=== PATIENT | female | born 1965 | race African-American/Black ===

== ENCOUNTER 2018-11-13 13:42 | Emergency (ER) | payer MEDICARE ==
[~2018-11-13] VITALS: Ht 165.1 cm; Wt 120.0 kg
[2018-11-13] MEDS ORDERED: ONDANSETRON ODT 4 MG ONE (14:23)
[2018-11-13] MEDS ORDERED: ONDANSETRON ODT 4 MG PO ONE ×2 (14:30→17:30)
[2018-11-13 14:50] LABS: BASOPHILS % (AUTO) 0 % (0-1); EOSINOPHILS # (AUTO) 0.03 x10^3/uL (0-0.4); EOSINOPHILS % (AUTO) 0 % (1-7); LYMPHOCYTES # (AUTO) 0.82 x10^3/uL (1-3.4); LYMPHOCYTES % (AUTO) 13 % (22-44); MD NO; MEAN CORPUSCULAR HEMOGLOBIN 26.5 pg (27.0-34.8); MEAN CORPUSCULAR HGB CONC 33.1 g/dL (32.4-35.8); MEAN PLATELET VOLUME 10.2 fL (7.4-10.4); MONOCYTES # (AUTO) 0.12 x10^3/uL (0.2-0.8); MONOCYTES % (AUTO) 2 % (2-9); NEUTROPHILS # (AUTO) 5.59 x10^3/uL (1.8-6.8); NEUTROPHILS % (AUTO) 85 % (42-75); PLATELET COUNT 259 x10^3/uL (130-400); RED BLOOD COUNT 5.95 x10^6/uL (3.82-5.3); RED CELL DISTRIBUTION WIDTH 16.4 % (9.6-15.2)
[2018-11-13 14:59] LABS: ALANINE AMINOTRANSFERASE 23 U/L (12-78); ALBUMIN 4.2 g/dL (3.4-5.0); ANION GAP 10 mmol/L (5-15); CALCIUM 9.1 mg/dL (8.5-10.1); CHLORIDE 109 mmol/L (98-107); CREATININE 0.84 mg/dL (0.55-1.02)
[2018-11-13 15:01] LABS: ALKALINE PHOSPHATASE 89 U/L (45-117); BILIRUBIN,TOTAL 0.8 mg/dL (0.2-1.0)
--- NOTE | 2018-11-13 16:17 | NUR ---
ADVERTISING ACCOUNT MANAGER: [facility]
--- NOTE | 2018-11-13 16:30 | NUR ---
pt presents to ED with c/o n/v/d and generalized abd pain starting this am. pt states she received zofran in triage. pt a&o, resps even and unlabored. 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 s/o at bedside.
--- NOTE | 2018-11-13 16:36 | NUR ---
pt instructed to provide clean catch ua, pt to bathroom with s/o using wheelchair d/t fatigue.
--- NOTE | 2018-11-13 17:18 | NUR ---
TOBIAS Fernandez at bedside to assess pt. aware bp 186/106.
[2018-11-13 17:20] LABS: MICROSCOPIC NOT IND
[2018-11-13 17:30] LABS: CULTURE INDICATED? NO
[2018-11-13] MEDS ORDERED: PROMETHAZINE 25 MG/ML, 1ML IM ONE (17:30)
[2018-11-13] MEDS ORDERED: PLEASE ENTER HEIGHT AND WEIGHT MC SCH (17:30)
[2018-11-13] MEDS ORDERED: DICYCLOMINE 10 MG/ML, 2ML IM ONE (17:30)
--- NOTE | 2018-11-13 17:35 | NUR ---
pt up to bathroom to void, to be medicated once back in bed.
--- NOTE | 2018-11-13 18:04 | NUR ---
PT MEDICATED PER EMAR, TOLERATED WELL. NO VOMITING OR DIARRHEA AT THIS TIME.
--- NOTE | 2018-11-13 18:14 | NUR ---
report to mayra Kennedy.
--- NOTE | 2018-11-13 18:32 | NUR ---
TASK RN: PT REPORTS IMPROVEMENT IN S/S WITH MEDICATIONS. PT PROVIDED PO FLUIDS FOR PO CHALLENGE. CHART UP FOR RECHECK
[2018-11-13] MEDS ORDERED: POTASSIUM CHLORIDE 20 MEQ TAB.ER.PRT PO ONE (19:00)
--- NOTE | 2018-11-13 19:02 | NUR ---
report received from mayra Kennedy.
--- NOTE | 2018-11-13 19:08 | NUR ---
TASK RN: Pt assisted to bathroom, via wheelchair.
[2018-11-13 20:49] VITALS: BP 176/102
== END 2018-11-13 20:52 | disposition home or self-care (01) ==
LOC: ED 20:45
DX: E86.0 Dehydration (principal); E87.6 Hypokalemia; I10 Essential (primary) hypertension; R10.84 Generalized abdominal pain; R11.2 Nausea with vomiting, unspecified; R19.7 Diarrhea, unspecified
CPT/HCPCS: 36415; 80053; 81003; 83690; 85025; 96372; 99284; J0500; J2550; Q0162